=== PATIENT | male | born 1975 | race African-American/Black ===

== ENCOUNTER 2017-06-19 15:17 | Emergency (ER) | payer OTHER ==
[~2017-06-19] VITALS: Ht 177.8 cm; Wt 77.1 kg
[2017-06-19 15:17] VITALS: BP 146/80
--- NOTE | 2017-06-19 15:54 | Emergency Room Report ---
History of Present Illness General Chief Complaint: Behavioral Complaint Source: Patient, EMS Present Illness HPI 41YOM BIBEMS for AMS after drinking a "purple drank" aka codeine/promethazine/ sprite/jolly rancher ?distraught after left him EMS notes normal vitals Family member/friend called EMS Patient not participating in HPI - opens his eyes to command Allergies: Coded Allergies: No Known Allergies (Unverified , 06/19/17) Patient History Past Medical History: psych hx Past Surgical History: none Pertinent Family History: none Social History: Denies: smoking, alcohol use, drug use Immunizations: UTD Reviewed Nursing Documentation: PMH: Agreed, PSxH: Agreed Nursing Documentation-PMH Past Medical History: No History, Except For History Of Psychiatric Problem: Yes - Depression Review of Systems All Other Systems: negative except mentioned in HPI Physical Exam Vital Signs Date Time Temp Pulse Resp B/P (MAP) Pulse Ox O2 Delivery O2 Flow Rate FiO2 06/19/17 15:06 98.2 84 18 158/98 99 Room Air Sp02 EP Interpretation: reviewed, normal General Appearance: normal inspection, well appearing, no apparent distress, alert, GCS 15, non-toxic Head: normocephalic, atraumatic Eyes: bilateral eye PERRL, bilateral eye EOMI ENT: normal ENT inspection, hearing grossly normal, normal voice Neck: normal inspection, full range of motion, supple, no bony tend Respiratory: normal inspection, lungs clear, normal breath sounds, no respiratory distress, no retraction, no accessory muscle use, no wheezing, speaking full sentences Cardiovascular #1: regular rate, rhythm, no edema Gastrointestinal: normal inspection, normal bowel sounds, non tender, soft, no guarding, no hernia Genitourinary: no CVA tenderness Musculoskeletal: normal inspection, back normal, normal range of motion, Linette' s Sign negative Neurologic: normal inspection, alert, oriented x3, responsive, lead ingot molder III-XII nml as tested, motor strength/tone normal, speech normal Psychiatric: normal inspection, judgement/insight normal, mood/affect normal Skin: normal inspection, normal color, no rash Lymphatic: normal inspection Medical Decision Making Diagnostic Impression: Primary Impression: Behavioral change ER Course 41YOM with behavior change/AMS after doing promethazine "Drink" VSS. Afebrile. Mother came later, provided collateral Patient takes Sertaline daily - has been compliant, "maybe missed some doses." On another medication "but hasnt picked up from pharmacy." Has therapist/PMD already Is more awake and alert. Denies SI, HI, AVH States "wants my back" - possibly being soon after marriage for 9 months Gave info for [facility] if unable to see doctor DC home Last Vital Signs Date Time Temp Pulse Resp B/P (MAP) Pulse Ox O2 Delivery O2 Flow Rate FiO2 06/19/17 15:06 98.2 84 18 158/98 99 Room Air Status: improved Disposition: HOME, SELF-CARE ADAM YAÑEZ M.D. Jun 19, 2017 15:54
[2017-06-19 16:54] VITALS: BP 141/91
[2017-06-19 18:26] VITALS: BP_SYST 130; BP_SYST 140; BP_DIAS 84; BP_DIAS 92
== END 2017-06-19 18:17 | disposition home or self-care (01) ==
LOC: EDBD 15:17 → EMR 17:14
DX: F91.9 Conduct disorder, unspecified (principal); R41.82 Altered mental status, unspecified
CPT/HCPCS: 99283

== ENCOUNTER 2020-07-14 11:36 | Emergency (ER) | payer OTHER ==
[~2020-07-14] VITALS: Ht 180.3 cm; Wt 86.2 kg
[2020-07-14 11:48] VITALS: BP 117/82
--- NOTE | 2020-07-14 11:49 | NUR ---
ED Nurse Note: Pt ambulated to ed c/o cough x 2 weeks. pt reports that he took benadryl and different "cough medicine" and it has not alleviate the coughing.
--- NOTE | 2020-07-14 13:03 | Emergency Room Report ---
History of Present Illness General Chief Complaint: Upper Respiratory Illness Source: Patient Present Illness HPI 44 YO male presents to the ED c/o cough x 2 weeks. Pt. reports sputum production x 4 days. He reports smoking history . He denies pmhx. Pt. denies asthma or COPD. Pt. reports chills but denies fevers. He denies muscle aches/body aches. No recent travel or ill contacts. Denies rashes. Pt. UTD with vaccinations. Denies CP or palpitations. Denies pain at this time. He denies SOB. Denies recent travel. Denies contact with persons who have tested positive for or are under investigation/quarantine for COVID-19. Allergies: Coded Allergies: No Known Allergies (Unverified , 06/19/17) COVID-19 Screening Contact w/high risk pt: No Experienced COVID-19 symptoms?: No COVID-19 Testing performed GENERAL MACHINE OPERATOR: No Patient History Past Medical History: see triage record Past Surgical History: none Pertinent Family History: none Reviewed Nursing Documentation: PMH: Agreed; PSxH: Agreed Nursing Documentation-PMH Past Medical History: No Stated History Review of Systems All Other Systems: negative except mentioned in HPI Physical Exam Vital Signs Date Time Temp Pulse Resp B/P (MAP) Pulse Ox O2 Delivery O2 Flow Rate FiO2 07/14/20 11:44 96.4 77 15 117/82 (94) 98 Room Air Sp02 EP Interpretation: reviewed, normal General Appearance: no apparent distress, alert, GCS 15, non-toxic Head: normocephalic, atraumatic Eyes: bilateral eye normal inspection, bilateral eye PERRL ENT: hearing grossly normal, normal voice Neck: full range of motion Respiratory: chest non-tender, lungs clear, normal breath sounds, speaking full sentences Cardiovascular #1: regular rate, rhythm, no edema Gastrointestinal: normal bowel sounds, non tender, soft Rectal: deferred Genitourinary: normal inspection Musculoskeletal: back normal, normal range of motion, gait/station normal, non- tender Neurologic: alert, motor strength/tone normal, oriented x3, sensory intact, responsive, speech normal Psychiatric: judgement/insight normal Lymphatic: no adenopathy Medical Decision Making PA Attestation Dr. Jaquez is my supervising physician whom pt. management has been d/w. Diagnostic Impression: Primary Impression: Upper respiratory infection Qualified Codes: J06.9 - Acute upper respiratory infection, unspecified ER Course 44 YO male presents to the ED c/o cough x 2 weeks. Pt. reports sputum production x 4 days. He reports smoking history . He denies pmhx. Pt. denies asthma or COPD. Pt. reports chills but denies fevers. He denies muscle aches/body aches. No recent travel or ill contacts. Denies rashes. Pt. UTD with vaccinations. Denies CP or palpitations. Denies pain at this time. He denies SOB. Denies recent travel. Denies contact with persons who have tested positive for or are under investigation/quarantine for COVID-19. Ddx considered but are not limited to URI, pneumonia, PE, strep pharyngitis, meningitis, COVID-19 Vital signs: Pt. is afebrile, the remaining VS are WNL H&PE are most consistent with URI- no meningeal signs, oropharynx is not involved, no evidence of bacterial infection at this time. ORDERS: -CXR: Unremarkable ED INTERVENTIONS: None required at this time. --PT. EDUCATION: Discussed antibiotic resistance with inappropriate prescribing of antibiotics for viral illnesses. Discussed signs and symptoms to indicate viral illness versus bacterial illness. DISCHARGE: At this time pt. is stable for d/c to home. Will provide printed patient care instructions, and any necessary prescriptions. Care plan and follow up instructions have been discussed with the patient prior to discharge. Chest X-Ray Diagnostic Results Chest X-Ray Diagnostic Results : Chest X-Ray Ordered: Yes # of Views/Limited/Complete: 1 View Indication: Chest Pain EP Interpretation: Yes ERICA Xray: Interpretation reviewed, by supervising MD, and agrees with findings. Interpretation: no consolidation, no effusion, no pneumothorax, no acute cardiopulmonary disease Impression: No acute disease Electronically Signed by: Yamile High PA-C Last Vital Signs Date Time Temp Pulse Resp B/P (MAP) Pulse Ox O2 Delivery O2 Flow Rate FiO2 07/14/20 11:48 77 15 Room Air 07/14/20 11:48 96.4 117/82 98 Status: improved Disposition: HOME, SELF-CARE Condition: Stable Scripts Albuterol Sulfate* (Albuterol Sulfate Hfa*) 8.5 Gm Hfa.aer.ad 2 PUFF INH Q6H, #1 INH Prov: Yamile High 07/14/20 Guaifenesin (Mucinex) 1,200 Mg Tab.er.12h 1200 MG PO Q12HR, #20 TAB Prov: Yamile High 07/14/20 Codeine/Promethazine Hcl* (PROMETHAZINE-CODEINE SYRUP*) 118 Ml Syrup 5 ML ORAL Q6H PRN for For Cough, #120 ML 0 Refills Prov: Yamile High 07/14/20 Referrals: Ginny Ceja. [facility] Patient Instructions: Upper Respiratory Infection, Adult Additional Instructions: An emergent condition has not been identified based on Medical screening evaluation, physical exam and any necessary tests/imaging. It has been determined that you are in stable condition and can your current symptoms can be managed by a primary care provider on an outpatient basis. Do NOT drink alcohol, operate heavy machinery, drive, or partake in any potentially dangerous activities that require your full attention. This medication ( COUGH SYRUP: PROMETHAZINE With CODEINE ) can cause drowsiness and impair your judgment. Follow up with a primary care provider within 3-5 days. Return promptly to the ED if you have worsening or new symptoms. Yamile High Jul 14, 2020 13:03
[2020-07-14] MEDS ORDERED: PROMETHAZINE-C118 M1 ORAL (13:12)
[2020-07-14] MEDS ORDERED: MUCINEX1200 MG PO (13:12)
[2020-07-14] MEDS ORDERED: ALBUTEROL SULF8.5 G1 INH (13:12)
--- NOTE | 2020-07-14 13:55 | NUR ---
ER DISCHARGE NOTE: Patient is cleared to be discharged per ERMD, pt is aox4, on room air, with stable vital signs. pt was given dc and prescription instructions, pt was able to verbalize understanding, pt id band removed. pt is able to ambulate with steady gait. pt took all belongings.
[2020-07-14 14:14] VITALS: BP 123/84
--- NOTE | 2020-07-14 16:36 | Diagnostic Imaging Report ---
Indication: Cough Technique: One view of the chest Comparison: none Findings: Lungs and pleural spaces are clear. Heart size is normal. Impression: No acute process
== END 2020-07-14 14:15 | disposition home or self-care (01) ==
LOC: EMR 12:25
DX: J06.9 Acute upper respiratory infection, unspecified (principal)
CPT/HCPCS: 71045; Z7502; 99283